=== PATIENT | male | born 1975 | race African-American/Black ===

== ENCOUNTER 2016-10-01 09:25 | Emergency (ER) | payer OTHER ==
[~2016-10-01] VITALS: Ht 167.6 cm; Wt 117.9 kg
[~2016-10-01 09:25] MED LIST: DEXA2TAB PO; HYDR-965 PO; HYDR15SO4 PO; PRED50TA PO
--- NOTE | 2016-10-01 10:11 | PHYS DOC ---
Past Medical History Past Medical History: Other Additional Past Medical Histor: PSTD, uvula swelling Past Surgical History: No Surgical History Additional Information: Nonsmoker Alcohol Use: Occasionally Drug Use: None Adult General Chief Complaint Chief Complaint: DIFFICULTY SWALLOWING HPI HPI Patient is a 41 year old male who presents with sore throat and difficulty swallowing starting today. He states that he has difficulty breathing when he tilts his head backwards. He denies fever, nasal drainage, ear pain, or cough. The patient has been seen here twice for similar symptoms and diagnosed with uvulitis. The swelling and pain resolved with steroids and pain medication. He does not have a PCP. Review of Systems Review of Systems Constitutional: Denies fever or chills. [] Eyes: Denies change in visual acuity, redness, or eye pain. [] HENT: Denies ear pain, nasal congestion. Reports sore throat and difficulty swallowing. Respiratory: Denies cough. Reports shortness of breath, positional with head placement. Integument: Denies rash or skin lesions. [] Neurologic: Denies headache, focal weakness or sensory changes. [] Current Medications Current Medications Current Medications Medications (Trade) Dose Ordered Sig/Maria T Start Time Stop Time Status Last Admin Dose Admin Dexamethasone Sodium Phosphate (Decadron) 10 mg 1X ONCE 10/01/16 10:30 10/01/16 10:31 DC 10/01/16 10:01 10 MG Allergies Allergies Allergies Coded Allergies Type Severity Reaction Last Updated Verified No Known Drug Allergies 01/10/16 No Physical Exam Physical Exam Constitutional: Well developed, well nourished, no acute distress, non-toxic appearance. [] HENT: Normocephalic, atraumatic, bilateral external ears normal, oropharynx moist, no oral exudates, nose normal. Bilateral TMs without erythema or bulging. There is posterior pharyngeal erythema with mild bilateral tonsillar edema and exudates. The uvula is edematous and erythematous. The airways grossly patent. There is no stridor. Eyes: PERRLA, EOMI, conjunctiva normal, no discharge. [] Neck: Normal range of motion, no tenderness, supple, no stridor. [] Cardiovascular: Heart rate regular rhythm, no murmur [] Lungs & Thorax: Bilateral breath sounds clear to auscultation without wheezes, rales, or rhonchi. No respiratory distress. Skin: Warm, dry, no erythema, no rash. [] Neurologic: Alert and oriented X 3, normal motor function, normal sensory function, no focal deficits noted. [] Psychologic: Affect normal, judgement normal, mood normal. [] Current Patient Data Vital Signs Vital Signs Date Time Temp Pulse Resp B/P Pulse Ox O2 Delivery O2 Flow Rate FiO2 10/01/16 09:34 97.8 101 18 181/102 97 Room Air 97.8 Lab Values Rapid strep negative EKG EKG [] Radiology/Procedures Radiology/Procedures [] Course & Med Decision Making Course & Med Decision Making Pertinent Labs and Imaging studies reviewed. (See chart for details) The patient is a 41-year-old male who presents with sore throat and difficulty swallowing starting this morning. He has a history of uvulitis and his exam today is consistent with recurrent uvulitis. He is producing responded with steroid treatment and pain medication. He was given Decadron in the emergency department today. Rapid strep was negative. He is discharged home with prescription for prednisone and Lortab elixir. He is given contact information for ENT for follow-up due to his recurrent uvulitis. Strict return precautions were discussed, including inability to tolerate oral secretions or increased difficulty breathing. The patient verbalizes understanding and agrees with plan. Dragon Disclaimer Dragon Disclaimer This electronic medical record was generated, in whole or in part, using a voice recognition dictation system. Departure Departure Impression: Primary Impression: Uvulitis Disposition: 01 HOME, SELF-CARE Condition: STABLE Referrals: NO PCP (PCP) Patient Instructions: Uvulitis Additional Instructions: You were seen today for swelling of the uvula, called uvulitis. Your strep test was negative. The swelling is likely due to inflammation, which should decrease with steroids. You were given a dose of a long-acting steroid in the emergency department today. Please complete all the prescribed steroid pills at home. Begin taking them tomorrow. Please take the prescribed pain medication as directed. Do not drive or operate heavy machinery while taking pain medication. Please follow-up with Dr. Chavez, and ENT doctor. Please call [phone] to schedule an appointment. Please let them know that you are a [facility] resident when scheduling your appointment to be sure that you are scheduled at the appropriate office location. Return to the emergency department if you have difficulty swallowing liquids or your own saliva, have increased difficulty breathing, or have other new or concerning symptoms. Scripts Hydrocodone Bit/Acetaminophen (Hydrocodone-Apap 7.5-325/15 Soln )15 Ml [id number] Ml PO PRN Q6HRS PRN PAIN #120 ML Ref 0 Prov:BC ALVARENGA 10/01/16 Prednisone 20 Mg [id number] Mg PO DAILY 5 Days Prov:BC ALVARENGA 10/01/16 BC ALVARENGA Oct 01, 2016 10:11
[2016-10-01] MEDS ORDERED: DEXAMETHASONE SOD PHOS 20 MG/5 ML VIAL. IM ONE (10:30)
[2016-10-01] MEDS ORDERED: HYDR15SO4 PO (10:39)
[2016-10-01] MEDS ORDERED: PRED20TA PO (10:39)
[2016-10-01 10:48] VITALS: BP 167/85
[2016-10-01 11:12] LABS: NEGATIVE OBC STREP NEG; POSITIVE OBC STREP POS
--- NOTE | 2016-10-03 16:56 | VNOTE ---
CALL BACK NOTE CALL BACK Microbiology 10/01/16 Throat Culture - Final, Complete 10/01/16 - Final, Complete Patient's culture for his throat came back positive for group G strep. Attempted to contact patient at the home phone number provided by registration. Message was left on answering machine for him to return call. Patient was not placed on any antibiotics at discharge. CASEY HOFFMAN APRN Oct 03, 2016 16:56
== END 2016-10-01 10:50 | disposition home or self-care (01) ==
LOC: ER 09:25
DX: K12.2 Cellulitis and abscess of mouth (principal); F43.10 Post-traumatic stress disorder, unspecified
CPT/HCPCS: 87070; 87880; 96372; 99284; J1100

== ENCOUNTER 2016-12-31 00:42 | Emergency (ER) | payer OTHER ==
[~2016-12-31 00:42] MED LIST changes: +PRED20TA PO
[2016-12-31 00:45] VITALS: BP 171/101
--- NOTE | 2016-12-31 05:57 | ED.ADGEN ---
Past Medical History Past Medical History: Other Additional Past Medical Histor: PSTD, uvula swelling Past Surgical History: No Surgical History Alcohol Use: Occasionally Drug Use: None Adult General Chief Complaint Chief Complaint: EARACHE/EAR PAIN HPI HPI Patient is a 41 year old -[place] male presents with bilateral ear pain , fullness for one day. Patient reports nasal congestion, rhinorrhea sinus pain and tenderness. Denies fever chills, reports slight sweats sore throat.no cough or shortness of breath.she has taken [id number] cough syrup limited relief. No other acute symptoms or complaints. Review of Systems Review of Systems Review symptoms as per history of present illness. All other review symptoms are negative. Allergies Allergies Allergies Coded Allergies Type Severity Reaction Last Updated Verified No Known Drug Allergies 01/10/16 No Physical Exam Physical Exam Constitutional: Well developed, well nourished, moderate discomfort secondary to pain. HENT: Normocephalic, atraumatic, facial pain, sinus tenderness, using good shape and position, and, mild erythema with opaque effusion,no otorrhea, maxillary sinus pain, tenderness, nose, midline, turbinates erythema and swelling, clear rhinorrhea. Eyes: PERRLA, EOMI. Neck: Normal range of motion, no tenderness, supple, no stridor. Cardiovascular:Heart rate regular rhythm, no murmur. Lungs & Thorax: Bilateral breath sounds clear to auscultation. Abdomen: Bowel sounds normal, soft, no tenderness. Skin: Warm, dry. Back: No tenderness, no CVA tenderness. Extremities: No tenderness. Neurologic: Alert and oriented X 3, normal motor function, normal sensory function, no focal deficits noted. Psychologic: Affect normal, judgement normal, mood normal. Current Patient Data Vital Signs Vital Signs Date Time Temp Pulse Resp B/P (MAP) Pulse Ox O2 Delivery O2 Flow Rate FiO2 12/31/16 00:45 98.7 104 22 96 Room Air 98.7 EKG EKG [] Radiology/Procedures Radiology/Procedures [] Course & Med Decision Making Course & Med Decision Making Pertinent Labs and Imaging studies reviewed. (See chart for details) [Acute upper respiratory tract infection with bilateral OM with effusion] Dragon Disclaimer Dragon Disclaimer This electronic medical record was generated, in whole or in part, using a voice recognition dictation system. RUSS PASCAL DO Dec 31, 2016 05:57
== END 2016-12-31 01:21 | disposition home or self-care (01) ==
LOC: ER 00:42
DX: J06.9 Acute upper respiratory infection, unspecified (principal); H65.193 Other acute nonsuppurative otitis media, bilateral; F43.10 Post-traumatic stress disorder, unspecified
CPT/HCPCS: 99283

== ENCOUNTER 2017-06-26 22:35 | Emergency (ER) | payer OTHER ==
[2017-06-26 22:57] LABS: ADD MAN DIFF? NO
[2017-06-26 23:01] LABS: BASO % 0 % (0-3); EOS % 17 % (0-3); HEMATOCRIT 42.2 % (39.0-53.0); HEMOGLOBIN 13.9 g/dL (13.0-17.5); LYMPH # 1.3 x10^3/uL (1.0-4.8); LYMPH % 22 % (24-48); MEAN CORPUSCULAR HEMOGLOBIN 30 pg (25-35); MEAN CORPUSCULAR HGB CONC 33 g/dL (31-37); MEAN CORPUSCULAR VOLUME 90 fL (79-100); MONO % 15 % (0-9); NEUT % 46 % (31-73); PLATELET COUNT 193 x10^3/uL (140-400); RED BLOOD COUNT 4.67 x10^6/uL (4.30-5.70); RED CELL DISTRIBUTION WIDTH 15.6 % (11.5-14.5); WHITE BLOOD COUNT 6.1 x10^3/uL (4.0-11.0)
[2017-06-26] MEDS: IV NORMAL SALINE 1000ML BAG 1,000 ML IV (23:36)
[2017-06-26] MEDS: ONDANSETRON PF 4 MG/2 ML VIAL. IV (23:36)
[2017-06-26 23:47] LABS: ANION GAP 7 (6-14); BLOOD UREA NITROGEN 20 mg/dL (8-26); BUN/CREATININE RATIO 20 (6-20); CALCIUM 8.3 mg/dL (8.5-10.1); CARBON DIOXIDE 30 mmol/L (21-32); CHLORIDE 105 mmol/L (98-107); GFR 99.2; GLUCOSE 101 mg/dL (70-99); POTASSIUM 4.5 mmol/L (3.5-5.1); SODIUM 142 mmol/L (136-145)
[2017-06-26 23:53] LABS: ALBUMIN 3.5 g/dL (3.4-5.0); ALBUMIN/GLOBULIN RATIO 0.9 (1.0-1.7); ALK PHOS 64 U/L (46-116); ALT (SGPT) 51 U/L (16-63); AST (SGOT) 32 U/L (15-37); TOTAL BILIRUBIN 0.2 mg/dL (0.2-1.0); TOTAL PROTEIN 7.6 g/dL (6.4-8.2)
[2017-06-27 00:39] LABS: BILIRUBIN,URINE NEGATIVE (NEG); GLUCOSE,URINE NEGATIVE (NEG); NITRITE,URINE NEGATIVE (NEG); PH,URINE 7.5; PROTEIN,URINE NEGATIVE (NEG-TRACE)
[2017-06-27 00:47] LABS: BACTERIA,URINE 0 /HPF (0-FEW); RBC,URINE OCC /HPF (0-2); SQUAMOUS EPITHELIAL CELL,UR FEW /LPF; WBC,URINE OCC /HPF (0-4)
== END 2017-06-27 00:55 | disposition home or self-care (01) ==
LOC: ER 06-27 00:55
DX: R19.7 Diarrhea, unspecified (principal); R10.84 Generalized abdominal pain
CPT/HCPCS: 36415; 80053; 81001; 83690; 85025; 96361; 96374; 99284-25; J2405; J7030